=== PATIENT | female | born 1965 | race Caucasian/White ===

== ENCOUNTER 2016-06-09 21:50 | Emergency (ER) | payer OTHER ==
[~2016-06-09] VITALS: Ht 160 cm; Wt 133.4 kg
[~2016-06-09 21:50] MED LIST: LISI-338 PO; METF10002 PO
[2016-06-09 21:58] VITALS: BP 159/78
[2016-06-09] MEDS ORDERED: PRED-220 PO (22:47)
[2016-06-09] MEDS ORDERED: HYDR-971 PO (22:47)
--- NOTE | 2016-06-09 22:47 | PHYS DOC ---
Past Medical History Past Medical History: Diabetes-Type II, Hypertension Additional Past Medical Histor: MINISTERIO Past Surgical History: Cholecystectomy, Tubal ligation, Other Additional Past Surgical Histo: bilateral myringotomy with tubes Alcohol Use: None Drug Use: None Adult General Chief Complaint Chief Complaint: UPPER EXTREMITY PAIN [facility] HPI Patient is a 50 year old female presents emergency Department with complaint of atraumatic left-sided neck pain that radiates down her left arm that began approximately 2 days ago. Patient states this has not happened to her before. Patient denies any history of spinal column or spinal cord injuries. She denies any history of neuromuscular diseases. She denies any history of rheumatologic disorders. Review of Systems Review of Systems Constitutional: Denies fever or chills [] Eyes: Denies change in visual acuity, redness, or eye pain [] HENT: Denies nasal congestion or sore throat [] Respiratory: Denies cough or shortness of breath [] Cardiovascular: No additional information not addressed in HPI [] GI: Denies abdominal pain, nausea, vomiting, bloody stools or diarrhea [] : Denies dysuria or hematuria [] Musculoskeletal: Denies back pain or joint pain [] Integument: Denies rash or skin lesions [] Neurologic: Denies headache, focal weakness or sensory changes [] Endocrine: Denies polyuria or polydipsia [] Allergies Allergies Allergies Coded Allergies Type Severity Reaction Last Updated Verified Sulfa (Sulfonamide Antibiotics) Allergy Severe Hives, itch 05/25/13 Yes morphine Allergy Severe Hives, itch, N/V 05/25/13 Yes Physical Exam Physical Exam Constitutional: Well developed, well nourished, no acute distress, non-toxic appearance. [] HENT: Normocephalic, atraumatic, bilateral external ears normal, oropharynx moist, no oral exudates, nose normal. [] Eyes: PERRLA, EOMI, conjunctiva normal, no discharge. [] Neck: Neck is normal in appearance without any overlying skin lesions. There is no midline tenderness. Brudzinski's is negative. There is tenderness to palpation at the level of C5, C6 and C7 in the left paraspinous soft tissues extends into the left superior trapezius region and posterior aspect of left shoulder. There is no palpable defect, deformity. Patient's left upper extremity is without dystrophic changes. Strength is equal and symmetric bilaterally. Cardiovascular:Heart rate regular rhythm, no murmur [] Lungs & Thorax: Bilateral breath sounds clear to auscultation [] Abdomen: Bowel sounds normal, soft, no tenderness, no masses, no pulsatile masses. [] Skin: Warm, dry, no erythema, no rash. [] Back: No tenderness, no CVA tenderness. [] Extremities: No tenderness, no cyanosis, no clubbing, ROM intact, no edema. [] Neurologic: Alert and oriented X 3, normal motor function, normal sensory function, no focal deficits noted. [] Psychologic: Affect normal, judgement normal, mood normal. [] Current Patient Data Vital Signs Vital Signs Date Time Temp Pulse Resp B/P Pulse Ox O2 Delivery O2 Flow Rate FiO2 06/09/16 21:58 97.6 69 22 98 Room Air 97.6 EKG EKG [] Radiology/Procedures Radiology/Procedures [] Course & Med Decision Making Course & Med Decision Making Pertinent Labs and Imaging studies reviewed. (See chart for details) [] Dragon Disclaimer Dragon Disclaimer This electronic medical record was generated, in whole or in part, using a voice recognition dictation system. Departure Departure Impression: Primary Impression: Cervical radiculopathy Disposition: HOME, SELF-CARE Condition: STABLE Referrals: NO PCP (PCP) Patient Instructions: Cervical Radiculopathy, [id number] Additional Instructions: 1. Take the medication as prescribed. 2. Review the discharge instructions provided for self-care and reasons to return to the emergency department. 3. Rest at home for the next 2 days. 4. Contact primary care provider's office tomorrow to schedule follow-up appointment for reevaluation. Be sure to discuss imaging at your appointment. Scripts Hydrocodone/Apap 5-325 ([place] 5-325 Tablet)1 Each Tablet1 Tab PO PRN Q6HRS PRN PAIN #15 TAB Ref 0 Prov:APOLLO AGUILA 06/09/16 Prednisone 10 Mg [id number] Mg PO UD PREDNISONE TAPER #39 TAB Ref 0 Take 3 tablets by mouth twice a day for 3 days, then take 2 tablets by mouth twice a day for 3 days, then take 1 tablet by mouth twice a day for 3 days, then take 1 tablet by mouth daily x 3 days, then stop. Prov:APOLLO AGUILA 06/09/16 APOLLO AGUILA 27, 2017 22:47
== END 2016-06-09 22:52 | disposition home or self-care (01) ==
LOC: ER 21:50
DX: M54.12 Radiculopathy, cervical region (principal); E11.9 Type 2 diabetes mellitus without complications; I10 Essential (primary) hypertension; G47.33 Obstructive sleep apnea (adult) (pediatric); Z88.2 Allergy status to sulfonamides; Z88.5 Allergy status to narcotic agent
CPT/HCPCS: 99283

== ENCOUNTER → 2020-03-02 | Day surgery (SDC) | payer OTHER ==
[~2020-03-02] MED LIST changes: +ATOR20TA58 PO; +EMPA10TA PO; +HYDR-3164 PO; +INSU100I32 SQ; +IV RINGERS,LACTATED 1000ML 1,000 ML IV SCH; +LIDOCAINE 2% PF 5 ML VIAL. ONE; -METF10002 PO; +METF10007 PO; +PRED-220 PO; +PROPOFOL 10 MG/ML (20ML) VIAL. IV ONE
--- NOTE | 2020-03-02 08:33 | CONS ---
DATE OF CONSULTATION: 03/02/2020 GASTROENTEROLOGY CONSULTATION REFERRING PHYSICIAN: Kwesi Rhodes MD REASON FOR CONSULTATION: Colorectal screening. HISTORY OF PRESENT ILLNESS: A 54-year-old female whose past medical history is significant for diabetes, hypertension, hyperlipidemia, is seen for colorectal screening. Bowel habits are regular without diarrhea or constipation. There has been no melena and/or hematochezia. Family history is unrevealing for colon polyps or colon cancer and previous colonoscopy 10 years ago was unrevealing. She is otherwise without additional complaints. PAST MEDICAL HISTORY: Diabetes, hypertension, hyperlipidemia. ALLERGIES: SULFA, MORPHINE. MEDICATIONS: Include atorvastatin, Jardiance, insulin, lisinopril, metformin. PAST SURGICAL HISTORY: Cervical back surgery, cholecystectomy and tubal ligation. SOCIAL HISTORY: She is a nondrinker, nonsmoker. FAMILY HISTORY: Significant for diabetes and high blood pressure with her grandmother as well as a stroke. REVIEW OF SYSTEMS: CARDIAC: History of hypertension. ENDOCRINE: History of diabetes. NEUROLOGIC: No stroke, migraine, neuropathy. ENDOCRINE: History of hyperlipidemia. HEMATOLOGIC: No bleeding, bruising, coagulopathy. DERMATOLOGIC: No skin rashes or pruritus. MUSCULOSKELETAL: No osteoarthrosis, arthralgias, myalgias. GASTROINTESTINAL: See history of present illness. PULMONARY: No shortness breath, productive cough, or asthma. RENAL: No dysuria, frequency, hematuria. PSYCHIATRIC: No mood swings, depression, insomnia. PHYSICAL EXAMINATION: GENERAL: Reveals a well-nourished, well-developed female who is alert, cooperative, in no acute distress. VITAL SIGNS: Temperature 97.5, pulse 56, respirations 20. HEENT: Reveals normocephalic, atraumatic head. Pupils and extraocular muscles are not tested. Sclerae anicteric. NECK: Supple. LUNGS: Clear. CARDIOVASCULAR: Reveals an S1, S2 without S3, S4 or appreciable murmur. ABDOMEN: Reveals a soft abdomen, normal bowel sounds, without appreciable hepatosplenomegaly. EXTREMITIES: Reveals no cyanosis, clubbing or edema with a cholecystectomy incision noted on the abdominal exam. IMPRESSION: Colorectal screening is warranted at this time. Risks and benefits of procedure including risk of hemorrhage and perforation during operation were discussed. The patient is willing to proceed at this time. I would like to thank Dr. Rhodes for allowing us to consult and participate in this patient's care. LAZARO NOVAK MD DR: MONIQUE/jr JOB#: [id number] / [id number] KWESI Mueller MD
[2020-03-02 09:04] VITALS: BP 100/56
--- NOTE | 2020-03-06 00:06 | PATHOLOGY ---
[facility] Accession Number: [id number] . 01 Material submitted: . colon - SIGMOID POLYP. Modifiers: sigmoid . 01 Clinical history: . CRC SCREEN . 02 Diagnosis: "Sigmoid polyp", biopsy: - Inflammatory/hyperplastic polyp; no dysplasia seen. . [facility] 03/05/2020 1648 Local . 02 Comment: Clinical and endoscopic correlation is recommended. . ([facility]; 03/05/2020) . 02 Electronically signed: . Joslyn Mccray MD, Pathologist NPI- [id number] . 01 Gross description: . Received in formalin labeled "Shea, Beatrice, sigmoid polyp" is a fragment of knutson-brown soft tissue measuring 0.3 x 0.3 x 0.1 cm. The specimen is submitted entirely in A1. ([facility] [place]; 03/04/2020) [facility] 03/04/2020 1109 Local . 02 Pathologist provided ICD-10: K63.5 . 02 CPT . 457166 Specimen Comment: A courtesy copy of this report has been sent to [phone], [phone] Specimen Comment: [id number] Specimen Comment: Report sent to / DR SMITH Performed at: 01 [facility] [address] [id number] MD Gaston Rollins MD Phone: [phone] Performed at: 02 [facility] [address], [place] [id number] MD Caden Lafleur MD Phone: [phone]
== END | disposition home or self-care (01) ==
LOC: ENDOS 06:54
PROVIDERS: ATTEND Internal Medicine Gastroenterology
DX: Z12.11 Encounter for screening for malignant neoplasm of colon (principal); K64.0 First degree hemorrhoids; K63.5 Polyp of colon; K57.30 Diverticulosis of large intestine without perforation or abscess without bleeding; K63.89 Other specified diseases of intestine; I10 Essential (primary) hypertension; E78.00 Pure hypercholesterolemia, unspecified; G47.30 Sleep apnea, unspecified; E11.9 Type 2 diabetes mellitus without complications; M06.9 Rheumatoid arthritis, unspecified; Z90.49 Acquired absence of other specified parts of digestive tract; Z98.51 Tubal ligation status; Z98.890 Other specified postprocedural states; Z79.899 Other long term (current) drug therapy; Z79.4 Long term (current) use of insulin; Z88.2 Allergy status to sulfonamides; Z88.6 Allergy status to analgesic agent
CPT/HCPCS: 45385; 82962; J2704